=== PATIENT | male | born 1980 | race Caucasian/White ===

== ENCOUNTER 2025-08-28 11:03 | Emergency (ER) | payer BC, SELFPAY ==
--- NOTE | ~2025-08-28 | US_ITS ---
EXAMINATION: US abdomen limited DATE: 08/28/2025 13:52 INDICATION: Abdominal pain, right upper quadrant. TECHNIQUE: Multiple grayscale and Doppler ultrasound images of the upper right abdomen were obtained. COMPARISON: CT abdomen pelvis dated 08/28/2025. FINDINGS: No evidence of gallstones or cholecystitis. Common hepatic duct measures 3 mm. Normal size liver. Portal vein and hepatic veins are patent. Right kidney shows increase echotexture of renal cortex indicating medical renal changes and couple of cysts measuring up to 1.7 cm in size. No free fluid noted. IMPRESSION: 1. No acute findings in the right upper quadrant especially related to gallbladder, liver and bile ducts. Reviewed, dictated and finalized at location T. HT SECURITY SPECIALIST IMPRESSION: 1. No acute findings in the right upper quadrant especially related to gallblad jessie, liver and bile ducts.
--- NOTE | ~2025-08-28 | CT_ITS ---
EXAM/PROCEDURE: CT abdomen pelvis w con HISTORY: abdominal pain COMPARISON: None available. TECHNIQUE: IV contrast enhanced CT of abdomen pel FINDINGS: The lung bases are clear. Heart size normal. The bowel gas pattern is nonobstructive with no free air free fluid or pneumatosis. Small bilateral simple appearing renal cyst. No hydroureteronephrosis. 3 mm bilateral nonobstructing kidney stones present. No obstructing ureteral stones or urinary bladder stones. Appendix and aorta both normal size. No gross CT evidence of acute cholecystitis or pancreatitis. The liver spleen adrenal glands and stomach appear normal. Prostate mildly enlarged. Moderate amount of stool extends of the cecum. Mild diverticular disease with no gross diverticulitis. Degenerative changes in the lumbar spine. The bones appear intact. IMPRESSION: No focal acute process seen to explain source of patient's symptoms. Reviewed, dictated and finalized at location A. OR MECHANICAL ENGINEER
--- NOTE | 2025-08-28 11:58 | PC.NURSE ---
patient states that flank pain feels less similar to kidney stones he's had and more similar to his prior shingles outbreak
[2025-08-28 12:01] LABS: Hematocrit 46.7 % (42.0-52.0); Hemoglobin 15.9 g/dL (14.0-18.0); Immature Granulocyte Percent A 0.1 % (0-0.5); Lymphocytes Absolute Auto 2.32 K/mm3 (0.9-3.2); Mean Corpuscular HGB Conc 34.0 g/dl (32-36); Mean Corpuscular Hemoglobin 29.2 pg (26-34); Mean Corpuscular Volume 85.7 fl (80-100); Nucleated Red Blood Cells Absolute Auto 0.000 K/mm3 (0.0-0.012); Nucleated Red Blood Cells Perc 0.0 % (0.0-0.2); Platelet Count Result 302 k/mm3 (150-375); Red Blood Count 5.45 M/mm3 (4.6-6.20); White Blood Count 7.9 K/mm3 (4.5-10.0)
[2025-08-28 12:06] LABS: Add Urine Microscopic? YES; Appearance Urine Cloudy (Clear); Glucose Urine UA Negative (Negative); Leukocyte Esterase Ur Negative LEU/UL (Negative); Nitrate Urine Negative (Negative); Non Pathogenic Casts 0-2; Specific Grav Ur 1.013 (1.001-1.035)
[2025-08-28 12:21] LABS: Alanine Aminotransferase 31 U/L (6-50); Albumin Level 4.6 g/dL (3.5-5.1); Alkaline Phosphatase 59 U/L (38-126); Anion Gap 6 mmol/L (4-12); Aspartate Amino Transferase 33 U/L (17-59); Bilirubin,Total 1.0 mg/dL (0.2-1.3); Blood Urea Nitrogen 11 mg/dL (9-20); Calcium 9.5 mg/dL (8.4-10.2); Carbon Dioxide 28 mmol/L (22-30); Chloride 103 mmol/L (98-107); Estimated CRCL calculation 91 ml/min; Estimated Glomerular Filt Rate > 60; Glucose 94 mg/dL (65-110); Lipase 875 U/L (23-300); Potassium 4.3 mmol/L (3.4-5.0); Sodium 137 mmol/L (137-145); Total Protein 7.7 g/dL (6.3-8.2)
[2025-08-28] MEDS: HYDROmorphone HCL INJ (*CRX) 1 MG/ML SYR 0.5 MG IV PUSH (12:46)
[2025-08-28] MEDS: ONDANSETRON INJ 4 MG/2 ML VIAL IV PUSH (12:47)
--- NOTE | 2025-08-28 14:00 | ED_ITS ---
HPI - General Adult General Chief complaint: Abdominal Pain Stated complaint: RUQ pain with rad to R flank Time Seen by Provider: 08/28/25 11:23 Related Data Allergies Allergy/AdvReac Type Severity Reaction Status Date / Time bupropion Allergy Intermediate Migraine Verified 08/28/25 11:06 morphine AdvReac Severe other Verified 08/28/25 11:06 MDM MDM Narrative Medical decision making narrative: laboratory studies were obtained the patient count 7.9 hemoglobin 15 point electrolytes showed no significant abnormality liver enzymes were normal lipase was slightly elevated 875 a urinalysis showed no blood no signs of infection CT of the abdomen pelvis showed no acute abnormality ultrasound the gallbladder showed no evidence of cholecystitis given the patient's symptoms are similar to whenever he has had shingles past he will be started on antiviral even though there is no rash this point the patient will also be given a prescription for pain medication lipase was slightly elevated patient was instructed to do a low-fat diet and return if he has symptoms Differential Diagnosis Differential Diagnosis: pancreatitis, colitis, ureterolithiasis, shingles, diverticulitis, colitis, appendicitis Lab Data 08/28/25 11:52 08/28/25 11:52 Labs: Lab Results 08/28/25 Range/Units 11:52 WBC 7.9 (4.5-10.0) K/mm3 RBC 5.45 (4.6-6.20) M/mm3 Hgb 15.9 (14.0-18.0) g/dL Hct 46.7 (42.0-52.0) % MCV 85.7 (80-100) fl MCH 29.2 (26-34) pg MCHC 34.0 (32-36) g/dl RDW 13.2 (11.5-14.5) % Plt Count 302 (150-375) k/mm3 MPV 8.1 (7.4-10.4) fl Immature Gran % (Auto) 0.1 (0-0.5) % Neut % (Auto) 61.6 (45.5-73.1) % Lymph % (Auto) 29.4 (18.3-44.2) % [place] % (Auto) 6.7 (2.6-8.5) % Eos % (Auto) 1.9 (0-4.4) % Baso % (Auto) 0.3 (0.2-1.2) % Lymph # (Auto) 2.32 (0.9-3.2) K/mm3 [place] # (Auto) 0.5 (0.1-0.6) K/mm3 Eos # (Auto) 0.2 (0-0.3) K/mm3 Baso # (Auto) 0.0 (0.0-0.1) K/mm3 Abs Immat Gran (auto) 0.01 (0.00-0.031) K/mm3 Absolute Neuts (auto) 4.9 (1.3-6.7) K/mm3 Absolute Nucleated RBC 0.000 (0.0-0.012) K/mm3 Nucleated RBC % 0.0 (0.0-0.2) % Sodium 137 (137-145) mmol/L Potassium 4.3 (3.4-5.0) mmol/L Chloride 103 (98-107) mmol/L Carbon Dioxide 28 (22-30) mmol/L Anion Gap 6 (4-12) mmol/L BUN 11 (9-20) mg/dL Creatinine 0.94 (0.7-1.3) mg/dL Estim Creat Clear Calc 91 ml/min Estimated GFR > 60 (59 - ) Glucose 94 (65-110) mg/dL Calcium 9.5 (8.4-10.2) mg/dL Total Bilirubin 1.0 (0.2-1.3) mg/dL AST 33 (17-59) U/L ALT 31 (6-50) U/L Alkaline Phosphatase 59 (38-126) U/L Total Protein 7.7 (6.3-8.2) g/dL Albumin 4.6 (3.5-5.1) g/dL Lipase 875 H (23-300) U/L Urine Color Yellow (Yellow) Urine Appearance Cloudy H (Clear) Urine pH 7.0 (5.0-9.0) Ur Specific [place] 1.013 (1.001-1.035) Urine Protein Negative (Negative) mg/dL Urine Glucose (UA) Negative (Negative) mg/dL Urine Ketones Negative (Negative) mg/dL Ur Blood (Man) Negative (Negative) Urine Nitrate Negative (Negative) Urine Bilirubin Negative (Negative) Urine Urobilinogen 0.2 (<2.0) mg/dL Leukocyte Esterase Rfl Negative (Negative) JAYLEN/UL Urine RBC 0-2 (0-2) /hpf Urine WBC 0-5 (0-3) /hpf Ur Squamous Epith Cells None seen (Few) /hpf Urine Bacteria None seen /hpf Urine Casts 0-2 Imaging Data Radiologist's impression: ITS Impressions Abdomen/Pelvis CT 08/28/25 13:41 IMPRESSION: No focal acute process seen to explain source of patient's symptoms. Abdomen Ultrasound 08/28/25 13:54 IMPRESSION: 1. No acute findings in the right upper quadrant especially related to gallbladder, liver and bile ducts. Discharge Plan Discharge Clinical Impression: Abdominal pain, Elevated lipase Patient Disposition: Home Condition: Stable Instructions: Antibiotic Form, Shingles (ED), Abdominal Pain (ED) Additional Instructions: your lipase was slightly elevated it is recommended that you start with bowel rest clear liquids if he develops severe pain in the area of your abdomen just above year of umbilicus you should return to the emergency department Your symptoms could be early a onset shingles and your started on a Patient Language: Thai Prescriptions: New valacyclovir [Valtrex] 1 gram tablet 1,000 mg PO Q8H 7 Days Qty: 21 0RF valacyclovir 1 gram tablet 1,000 mg PO TID 7 Days Qty: 21 0RF hydrocodone-acetaminophen 5-325 mg tablet 1 tablet PO Q6H PRN (Reason: pain) 3 Days Qty: 12 0RF Follow-up/Referrals: Mona Mattson [Other] Time of Disposition: 14:41
[2025-08-28] MEDS: SODIUM CHLORIDE 0.9% IV 1,000 ML 999 ML IV CONT (14:02)
== END 2025-08-28 14:57 | disposition home or self-care (01) ==
PROVIDERS: Physician Assistant; Emergency Provider Emergency Medicine
DX: R10.A1 Flank pain, right side (principal); R74.8 Abnormal levels of other serum enzymes
CPT/HCPCS: 36415; 74177; 76705; 80053; 81001; 83690; 85025; 96361; 96374; 96375; 99284; J1171; J2405; J7030; Q9967